=== PATIENT | male | born 1975 | race Caucasian/White ===

== ENCOUNTER 2019-08-07 18:32 | Emergency (ER) | payer OTHER ==
[~2019-08-07] VITALS: Ht 193 cm; Wt 171.0 kg
[~2019-08-07 18:32] MED LIST: FAMOTIDINE20 MG PO; FENOFIBRATE160 MG PO
--- OUTSIDE RECORDS SUMMARY | 2019-08-07 18:34 | XMS ---
PreManage Notification: NEHEMIAH JACOBO [employer] Events No recent Security Events currently on file CRITERIA MET - [facility] There are no care providers on record at this time. Leandra has no Care Guidelines for this patient. Derek VISIT COUNT (12 MO.) 1 RADHA Maddox TOTAL 1 NOTE: Visits indicate total known visits. ED/UCC VISIT TRACKING (12 MO.) 08/07/2019 18:32 RADHA Corley OR TYPE: Emergency COMPLAINT: - ABDOMINAL PAIN INPATIENT VISIT TRACKING (12 MO.) No inpatient visits to display in this time frame [email or web address]
[2019-08-07] MEDS ORDERED: FLOMAX0.4 MG PO (21:54)
[2019-08-07] MEDS ORDERED: NORCO 10-325 T1 EACH PO (21:54)
[2019-08-07] MEDS ORDERED: PROMETHAZINE HC25 M1 PO (21:54)
== END 2019-08-07 22:12 | disposition home or self-care (01) ==
LOC: ED 18:32
DX: N13.2 Hydronephrosis with renal and ureteral calculous obstruction (principal); Z88.5 Allergy status to narcotic agent; Z79.899 Other long term (current) drug therapy
CPT/HCPCS: 74176; 80053; 81001; 85025; 96361; 96374; 96375; 96376; 99284-25; J1170; J1885; J2405; J7030

== ENCOUNTER 2024-12-21 07:40 | Day surgery (SDC) | payer OTHER ==
[~2024-12-21] VITALS: Ht 193 cm; Wt 195.5 kg
[~2024-12-21 07:40] MED LIST changes: -FAMOTIDINE20 MG PO; -FENOFIBRATE160 MG PO; +IBLOOD GLUCOSE TEST STRIP 1 EA TEST VI PRN; +LACTATED RINGER'S 1,000 ML IV SCH; +LIDOCAINE HCL 1% 5 ML SDV INJ ONE; +MIDAZOLAM HCL 5 MG/5 ML VIAL IV PRN; +fentaNYL citrate 100 MCG/2 ML VIAL IV PRN
--- NOTE | 2024-12-21 07:59 | NUR ---
LR STARTED TKO.
[2024-12-21] MEDS ORDERED: fentaNYL citrate 100 MCG/2 ML VIAL ONE (08:46)
[2024-12-21] MEDS ORDERED: propofoL 200 MG/20 ML VIAL ONE (08:46)
[2024-12-21] MEDS ORDERED: LIDOCAINE HCL 2% 5 ML SDV ONE (08:46)
[2024-12-21 09:38] VITALS: BP 138/84
--- NOTE | 2024-12-21 09:59 | NUR ---
12/21/24 0959 Jerri Borja 0913 PT ARRIVED TO PACU AWAKE AND TALKING TO RN. PT ENCOURAGED TO PASS GAS NEEDED. VSS. 0920 PT HOB INCREASED. 09 MD TALKING TO PT. 0935 PT SIPPING WATER WITH NO CONCERNS. 0948 PT PULLING CAR UP AND DC INSTRUCUITONS GIVEN TO PT. PT DRESSED HIMSELF AND PAPERWORK GIVEN. PT DC VIA .
== END 2024-12-21 09:48 | disposition home or self-care (01) ==
LOC: DS 07:40
PROVIDERS: ATTEND Colon & Rectal Surgery
PROC: 0DBG8ZX Excision of Left Large Intestine, Via Natural or Artificial Opening Endoscopic, Diagnostic (ICD-10-PCS; principal; 2024-12-21)
DX: Z12.11 Encounter for screening for malignant neoplasm of colon (principal); K63.5 Polyp of colon; K57.30 Diverticulosis of large intestine without perforation or abscess without bleeding; K64.8 Other hemorrhoids; E78.5 Hyperlipidemia, unspecified; N40.0 Benign prostatic hyperplasia without lower urinary tract symptoms; G47.33 Obstructive sleep apnea (adult) (pediatric); E66.9 Obesity, unspecified; Z68.43 Body mass index [BMI] 50.0-59.9, adult; Z79.899 Other long term (current) drug therapy
CPT/HCPCS: 00812; J2003; J2704; J3010